=== PATIENT | male | born 2000 | race African-American/Black ===

== ENCOUNTER 2024-06-15 11:37 | Emergency (ER) | payer OTHER ==
[2024-06-15 11:50] VITALS: BP 130/73; PULSE 58; RESP 20; TEMP 98.6; BMI 23.0
[2024-06-15] MEDS ORDERED: ACETAMINOPHEN INJECTION 100 ML ONE (13:25)
[2024-06-15] MEDS ORDERED: ONDANSETRON 4 MG/2 ML VIAL ONE (13:25)
[2024-06-15] MEDS: ACETAMINOPHEN 1000 MG/100 ML BAG IVPB ONE (13:41)
[2024-06-15] MEDS: SODIUM CHLORIDE 0.9% 500 ML INFUS.BAG IV ONE (13:41)
[2024-06-15] MEDS: ONDANSETRON 4 MG/2 ML VIAL IVPUSH ONE (13:41)
[2024-06-15 13:57] LABS: BASO % 0.3 % (0-2.0); EOS % 1.5 % (0-4.5); HEMATOCRIT 48.4 % (35.4-49); HEMOGLOBIN 15.8 GM/dL (11.7-16.9); LYMPH % 29.8 % (8-40); MCH 29.3 pg (25.7-33.7); MCHC 32.6 g/dl (32.0-35.9); MEAN CELL VOLUME 89.9 fl (80-96); MEAN PLT VOLUME 8.9 fl (7.5-11.1); MONO % 16.6 % (3.8-10.2); NEUT % 51.8 % (42.8-82.8); PLATELET COUNT 206 10^3/uL (134-434); RBC 5.39 M/mm3 (4.00-5.60); RDW 14.8 % (11.9-15.9); WHITE BLOOD COUNT 4.9 K/mm3 (4.0-10.0)
[2024-06-15] MEDS ORDERED: FAMOTIDINE 20 MG/50 ML IVPB 20 MG/50 ML MG IVPB ONE (14:00)
[2024-06-15] MEDS: FAMOTIDINE 20 MG/50 ML IVPB 20 MG/50 ML MG IVPB ONE (14:08)
[2024-06-15 14:32] LABS: POTASSIUM 4.5 mmol/L (3.5-5.1)
[2024-06-15 14:34] LABS: CALCIUM 9.8 mg/dL (8.5-10.1)
[2024-06-15 14:35] LABS: ALBUMIN 4.2 g/dl (3.4-5.0); BLOOD UREA NITROGEN 15.4 mg/dL (7-18)
[2024-06-15 14:38] LABS: CREATININE 1.2 mg/dL (0.55-1.3)
[2024-06-15 14:39] LABS: BILIRUBIN,TOTAL 0.9 mg/dL (0.2-1)
[2024-06-15 14:40] LABS: TOT PROT 7.5 g/dl (6.4-8.2)
[2024-06-15 15:34] LABS: HIV INTERPRETATION NEGATIVE (NEGATIVE)
== END 2024-06-15 17:54 | disposition home or self-care (01) ==
LOC: JER 11:37
PROC: 3E033GC Introduction of Other Therapeutic Substance into Peripheral Vein, Percutaneous Approach (ICD-10-PCS; principal; 2024-06-15)
PROC: 3E033NZ Introduction of Analgesics, Hypnotics, Sedatives into Peripheral Vein, Percutaneous Approach (ICD-10-PCS; 2024-06-15)
PROC: 3E033GC Introduction of Other Therapeutic Substance into Peripheral Vein, Percutaneous Approach (ICD-10-PCS; 2024-06-15)
DX: R10.31 Right lower quadrant pain (principal); R10.33 Periumbilical pain; R19.7 Diarrhea, unspecified; R11.0 Nausea
CPT/HCPCS: 36415; 74177-TC; 80053; 83690; 85025; 86803; 87389; 99285-25; J0131; Q9967

== ENCOUNTER 2025-01-01 12:43 | Emergency (ER) | payer SELFPAY ==
[2025-01-01 12:51] VITALS: BP 149/89; PULSE 88; RESP 18; TEMP 98.3; BMI 22.7
[2025-01-01] MEDS ORDERED: KETOROLAC TROMETHAMINE 30 MG/1 ML VIAL ONE (13:38)
[2025-01-01] MEDS: KETOROLAC TROMETHAMINE 30 MG/1 ML VIAL IM ONE (13:42)
== END 2025-01-01 15:30 | disposition home or self-care (01) ==
LOC: JERFT 12:43
PROC: 3E0233Z Introduction of Anti-inflammatory into Muscle, Percutaneous Approach (ICD-10-PCS; principal; 2025-01-01)
DX: S43.102A Unspecified dislocation of left acromioclavicular joint, initial encounter (principal); M79.632 Pain in left forearm; M79.662 Pain in left lower leg; M79.671 Pain in right foot; Y04.0XXA Assault by unarmed brawl or fight, initial encounter
CPT/HCPCS: 73060-TC-LT-FY; 73070-TC-LT-FY; 73090-TC-LT-FY; 73630-TC-RT-FY; 93971-TC; 99285-25